=== PATIENT | female | born 1985 | race Caucasian/White ===

== ENCOUNTER 2017-05-23 10:16 | Day surgery (SDC) | payer MEDICAID, OTHER ==
[2017-05-23] MEDS ORDERED: LIDOCAINE 1% 2 ML INJ ONE (10:27)
[2017-05-23] MEDS ORDERED: LR 1,000 ML IV ONE (10:33)
[2017-05-23] MEDS ORDERED: LIDOCAINE 1% 2 ML INJ ID PRN (10:33)
[2017-05-23] MEDS ORDERED: BUPIVACAINE 0.25% 30 ML SDV ONE (10:34)
[2017-05-23 10:55] VITALS: PULSE 88
[2017-05-23] MEDS ORDERED: ACETAMINOPHEN 500 MG TAB PO ONE (12:24)
[2017-05-23] MEDS ORDERED: PREGABALIN 150 MG CAP PO ONE (12:24)
[2017-05-23] MEDS ORDERED: ceFAZolin 2 GM/SWFI 2 GM/20 ML SYR IVP ONE (12:24)
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
--- NOTE | 2017-05-23 13:37 | PDANEPAE ---
ANE History of Present Illness piriformis release ANE Past Medical History - Cardiovascular History Hx Hypertension: No Hx Arrhythmias: No Hx Chest Pain: No Hx Coronary Artery / Peripheral Vascular Disease: No Hx CHF / Valvular Disease: No Hx Palpitations: No - Pulmonary History Hx COPD: No Hx Asthma/Reactive Airway Disease: No Hx Recent Upper Respiratory Infection: No Hx Oxygen in Use at Home: No Hx Sleep Apnea: No Sleep Apnea Screening Result - Last Documented: Negative - Neurologic History Hx Cerebrovascular Accident: No Hx Seizures: No Hx Dementia: No - Endocrine History Hx Diabetes: No - Renal History Hx Renal Disorders: No - Liver History Hx Hepatic Disorders: No - Neurological & Psychiatric Hx Hx Neurological and Psychiatric Disorders: No - Cancer History Hx Cancer: No - Congenital Disorder History Hx Congenital Disorders: No - GI History Hx Gastrointestinal Disorders: No - Other Health History Other Health History: none - Chronic Pain History Chronic Pain: Yes (lower back problems) - Surgical History Prior Surgeries: 2013, septoplasty. hardware removed from left femur 01/27 ANE Review of Systems Review of systems is: negative Review of Systems: - Exercise capacity Exercise capacity: >=4 METS METS (RN): 4 METS ANE Patient History - Allergies Allergies/Adverse Reactions: latex Allergy (Severe, Verified 05/20/17 12:07) Dyspnea - NPO status NPO Status: no food or drink >8 hours NPO Since - Liquids (Date): 05/22/17 NPO Since - Liquids (Time): 20:00 NPO Since - Solids (Date): 05/22/17 NPO Since - Solids (Time): 20:00 - Anes Hx Anes Hx: no prior problems - Smoking Hx Smoking Status: Never smoked - Alcohol Use Alcohol Use: Rarely - Family Anes Hx Family Anes Hx: none Family Hx Anesthesia Complications: none ANE Labs/Vital Signs - Vital Signs Vital Signs: reviewed preoperatively; see RN documention for details Blood Pressure: 107/70 Heart Rate: 88 Respiratory Rate: 16 O2 Sat (%): 97 Height: 165.1 cm Weight: 61.235 kg ANE Physical Exam - Airway Mallampati Score: Class 1 Mouth exam: normal dental/mouth exam - Pulmonary Pulmonary: no respiratory distress - Cardiovascular Cardiovascular: regular rate and rhythym - ASA Status ASA Status: I ANE Anesthesia Plan Anesthesia Plan: GA w LMA
[2017-05-23] MEDS ORDERED: MIDAZOLAM 2 MG/2 ML VIAL IVP ONE (13:38)
[2017-05-23] MEDS ORDERED: LIDOCAINE 2% 5 ML SDV ONE (14:24)
[2017-05-23] MEDS ORDERED: PROPOFOL 200 MG/20 ML VIAL ONE ×2 (14:24→14:47)
[2017-05-23] MEDS ORDERED: fentaNYL 100 MCG/2 ML INJ ONE ×3 (14:24→16:35)
[2017-05-23] MEDS ORDERED: DEXAMETHASONE 4 MG/ML VIAL ONE ×2 (14:47)
[2017-05-23] MEDS ORDERED: ONDANSETRON 4 MG/2 ML VIAL ONE ×2 (14:47→17:10)
[2017-05-23] MEDS ORDERED: KETOROLAC 30 MG/1 ML SDV ONE (14:47)
[2017-05-23] MEDS ORDERED: NALOXONE HCL 0.4 MG/ML INJ IVP PRN (15:30)
[2017-05-23] MEDS ORDERED: DIAZEPAM 10 MG/2 ML SYR IVP PRN (15:39)
[2017-05-23] MEDS ORDERED: MEPERIDINE 25 MG/ML SYR IVP PRN (15:39)
[2017-05-23] MEDS ORDERED: PROMETHAZINE HCL 25 MG/ML INJ IVP PRN (15:39)
[2017-05-23] MEDS ORDERED: ONDANSETRON 4 MG/2 ML VIAL IVP PRN (15:39)
[2017-05-23] MEDS ORDERED: OXYCODONE/APAP 5/325 TAB PO PRN (15:39)
[2017-05-23] MEDS ORDERED: fentaNYL 100 MCG/2 ML INJ IVP PRN (15:39)
[2017-05-23] MEDS ORDERED: LR 500 ML IV PRN (15:39)
--- NOTE | 2017-05-23 16:27 | POSTANESTH ---
Post Anesthetic Evaluation Cardiovascular Status: Normal, Stable, Similar to Pre-Op Cond Respiratory Status: Normal, Stable, Similar to Pre-op Cond. Level of Consciousness/Mental Status: Can Participate in Eval, Alert and Oriented Pain Control: Adequate, Prn Tx Ordered Nausea/Vomiting Control: Adequate, Prn Tx Ordered Complications Possibly Related to Anesthesia: None Noted
[2017-05-23] MEDS ORDERED: OXYCODONE/APAP 5/325 TAB ONE (16:35)
[2017-05-23 16:56] VITALS: BP 110/72; RESP 18; O2SAT 99
[2017-05-23 17:25] VITALS: TEMP 96.8
[2017-05-23] MEDS ORDERED: PROMETHAZINE HCL 25 MG/ML INJ ONE (18:21)
== END 2017-05-23 18:45 | disposition home or self-care (01) ==
LOC: FSGY 10:16
PROVIDERS: ATTEND Orthopaedic Surgery Sports Medicine
PROC: 01NF0ZZ Release Sciatic Nerve, Open Approach (ICD-10-PCS; principal; 2017-05-23 11:45)
DX: G57.02 Lesion of sciatic nerve, left lower limb (principal); Q65.89 Other specified congenital deformities of hip
CPT/HCPCS: J0171; J0690; J1100; J1885; J2250; J2405; J2550; J2704; J3010